=== PATIENT | female | born 1995 | race Caucasian/White ===

== ENCOUNTER → 2017-06-27 | Outpatient (CLI) | payer BC ==
--- NOTE | 2017-06-28 06:03 | PAP/PSG TECHNICIAN REPORT ---
[facility] Irrigator Head Polysomnogram Report Study name: None Report date: 06/28/2017 Study date: 06/27/2017 Referring Physician: MARCOS WASSERMAN PA-C Name: RISA WELLS Interpreting Physician: Dominik Ureña M.D. Date of : 1995 Irrigator Head: Dilia Keller [facility]. Sex: Female Age: 22 Study Type: PSG Weight: 174 lbs Height: 22 years, Height 5' 6" BMI: 28.08 Medications: NONE REPORTED Patient History 22 yr-old female here for a baseline study. She has a history of excessive daytime sleepiness, falling asleep at inappropriate times, and weakness in her arms and legs while laughing. Her Arbuck[place] scale is 17. The test was started on room air. ETCO2 testing was not utilized during this study. Room 3 Parameters Monitored NPSG: E1-M2, E2-M1, Fp1-M2, Fp2-M1, F3-M2, F4-M2, F4-M1, C3-M2, C4-M2, C4-M1, O1-M2, O2-M2, O2-M1, T3-M2, T4-M1, P3-M2, P4-M1, CHIN1, CHIN2, HR, EKG, Legs, PFLOW, SNOR, FLOW, CFLOW, Tidal Volume, THOR, ABDO, SpO2, PLTH, CPRESS, ETCO2 Wave, ETCO2, pH Sleep Architecture Sleep Stages Time at Lights Off 8:38:06 PM STAGES Time (min.) TST (%) Time at Lights On 5:30:36 AM Wake 47.5 -- Total Recording Time (TRT) 532.50 min. N1 33.5 7 Total Sleep Period (TSP) 513.0 min. N2 272.0 56 Total Sleep Time (TST) 485.0min. N3 55.0 11 Awake Time 47.5 min. REM 124.5 26 Wake after Sleep Onset 28.0 min. Sleep Efficiency (SE) 91 % Sleep Onset Latency (ABIGAIL) 19.5 min. Number of Stage 1 Shifts None Awakenings 16 Stage Changes 75 Number of REM periods 9 REM 124.5 26 REM Latency 79.5 min. NREM 360.5 74 Body Position Analysis Supine Right Left Side Prone Vertical Total Sleep Time (min.) 194.2 4.5 304.8 309.26 0.0 0.2 Total Sleep Time (%) 36% 1% 63% 64 0% N/A% Total Sleep Time REM (min.) 53.4 0.0 71.1 None 0.0 0.0 Total Sleep Time NREM (min.) 122.3 4.5 233.7 None 0.0 0.0 Intermittent Wake (min.) 18.4 7.5 21.4 None 0.0 0.2 Total Sleep Period (%) 36% None None None None None Arousals Myoclonus (PLM) * Events Count Index Events Count Index Spontaneous 49 6 Events Awake (PLMW) 46 58.1 Respiratory 0 0.0 Events Asleep w/ Arousal (PLMA) 13 1.6 PLM 13 2 Events Asleep w/o Arousal (PLMS) 57 7.1 Snoring 1 0 Total Asleep 70 8.7 Total 63 8 Total 116 13 Respiratory Analysis * CA OA MA CH H RERA Total Count 2 0 0 0 0 0 2 Index 0.2 0.0 0.0 0 0.0 0 0.2 Mean Duration 10.0 0.0 0.0 0.00 0.0 0.0 10.0 Longest Duration 10.1 0.0 0.0 0.00 0.0 0.0 10.1 Respiratory Event Summary Total Supine ~Supine Right Left Prone REM NREM Apneas Count 2 0 2 1 1 N/A 1 1 Index 0.2 0 0 13.3 0.2 N/A 0 0 Hypopneas (4% Desat) Count 0 0 0 0 0 N/A 0 0 Index 0.0 0.0 0 0.0 0.0 N/A 0.0 0.0 Apneas & All Hypopneas Count 2 0 2 1 1 N/A 1 1 Index 0.2 0 0 13 0 N/A 0.5 0.2 Respiratory Events (Poultry Scalder+All Hyp+RERA) Count 2 0 2 1 1 N/A 1 1 Index 0.2 0 0 13.3 0.2 N/A 0.5 0.2 Respiratory Related Arousal Count 0 0 0 0 0 N/A 0 0 Index 0.0 0 0 0 0 N/A 0 0 Snoring Analysis Supine Right Left Prone REM NREM Total Snore duration 1.1 min Snores count 5 0 13 N/A 5 13 18 Snore mean duration 3.6 Sec Snores index 2 0 3 N/A 2.4 2.2 2.2 TST with snoring (%) 0.2% Desaturation Event Summary: Minimum %SpO2 Event Count Mean/Min/Max Duration(sec.) Desaturation Index % Time In Bed > 90 8 22.0 / 6.0 / 55.0 0.9 99.6 86 - 90 0 N/A 0.0 0.0 81 - 85 0 N/A 0.0 0.1 76 - 80 0 N/A 0.0 0.1 71 - 75 0 N/A 0.0 0.0 66 - 70 0 N/A 0.0 0.0 61 - 65 1 16.0 / 16.0 / 16.0 576.0 0.0 56 - 60 0 N/A 0.0 0.0 51 - 55 0 N/A 0.0 0.0 < 50 0 N/A 0.0 0.0 Total REM NREM Awake <50% 0.0 min. 0.0 min. 0.0 min. 0.0 min. 51 - 60% 0.2 min. 0.0 min. 0.0 min. 0.2 min. 61 - 70% 0.1 min. 0.0 min. 0.0 min. 0.1 min. 71 - 80% 0.9 min. 0.0 min. 0.0 min. 0.9 min. 81 - 90% 1.0 min. 0.0 min. 0.0 min. 1.0 min. 91 - 100% 523.9 min. 124.5 min. 360.4 min. 39.1 min. Average 96 96 96 96 Minimum SpO2 60 94 92 60 Desaturation Event Index 1.0 0.0 0.2 10.1 # Desat. Events below 89% 2 N/A N/A 2 Time(%) with Saturation below 89% 0.4 0.0 0.0 0.4 Time(min.) with Saturation below 89% 2.2 0.0 0.0 2.2 Time (mins) REM (mins) NREM (mins) % of TST SpO2 Below 90% N/A N/A NN/A 0.0 SpO2 Below 88% 0 0 0 0 Heart Rate Analysis Min (bpm) Max (bpm) Average (bpm) Awake 54 225 75 NREM 51 97 69 REM 52 106 72 Overall 51 106 70 Supplemental O2 Values Minimum O2 level: None Value Start Time End Time Irrigator Head Comments Ms. Wells slept in the right, left, and supine positions. No cardiac arrhythmias or PLMs noted. No bruxism noted. No snoring was noted. She did not wake up to use the restroom during the night. Ms. Wells stated that she slept about the same as usual. The final report will be interpreted and signed by a sleep physician. The completed physician report will then be placed in the patient medical record. Therapy (cm H2O) 0 TIB (min.) 532.5 TST (min.) 485.0 Sleep Onset (min.) 19.5 REM Onset From Sleep (min.) 79.5 Sleep Efficiency % 91 Wakefulness (%) 9 Wakefulness (min.) 47.5 NREM 1 (%) 7 NREM 1 (min.) 33.5 NREM 2 (%) 56 NREM 2 (min.) 272.0 NREM 3 (%) 11 NREM 3 (min.) 55.0 REM (%) 26 REM (min.) 124.5 # Arousals 63 Arousal Index 8 # Snore 18 Snore Index 2.2 AHI 0.2 AHI Supine 0 AHI Non-Supine 0 NREM AHI 0.2 REM AHI 0.5 RDI 0.2 # Obstructive Apnea 0 # Central Apnea 2 # Mixed Apnea 0 # Hypopneas 0 RERAs 0 Total Respiratory Events 2 Time Below SpO2 89% (min.) 0.0 Mean NREM SpO2 (%) 96 Mean REM SpO2 (%) 96 Mean Sleep SpO2 (%) 96 Min NREM SpO2 (%) 92 Min REM SpO2 (%) 94 Position Supine (min.) 194.2 Position Non-supine (min.) 309.3 LM Index Sleep 8.7 LM Index NREM 9.0 LM Index REM 7.7 Mean Heart Rate (bpm) 70 Min Heart Rate (bpm) 51
[2017-06-28 11:40] LABS: BENZODIAZEPINE, URINE NEG (NEG); COCAINE,URINE NEG (NEG); PHENCYCLIDINE, URINE NEG (NEG)
--- NOTE | 2017-06-28 16:29 | POLYSOMNOGRAPH REPORT ---
[facility] MSLT REPORT Study Date: 06/28/2017 Report Date: 06/28/2017 Name: RISA FERNANDEZ Subject Code: Medicare: [facility] #: [id number] Sex: Female Referring Physician: TATO BARLOW M.D. Age: 22 Interpreting Physician: Evan Cho D.O. Weight: 174 lbs Public Safety Telecommunicator: Meghan Tolliver RPSGT. : 1995 Study Indications: BMI: 28.08 Medications: NONE Height: 5' 6" Medicare Date: Patient History Patient has a history of excessive daytime sleepiness, falling asleep at inappropriate times, and weakness in her arms and legs while laughing. Patient did have a combination Poly/MSLT in 2015 that was inconclusive with one nap containing REM. Patient had a sleep study done last night and is here today for an MSLT. Nap 1 Nap 2 Nap 3 Nap 4 Nap 5 Mean Values Start Time: 7:33:01 AM 9:31:31 AM 11:32:01 AM 1:31:01 PM 3:34:01 PM - End Time: 7:56:31 AM 9:51:31 AM 11:52:01 AM 1:59:31 PM 4:07:01 PM - Time in Bed (min): 23.50 20.00 20.00 28.50 33.00 25.00 Total Sleep Time (min): 15.00 0.00 0.00 12.50 1.50 5.80 Sleep Latency* (min): 8.50 NONE NONE 13.50 18.00 16.00 REM Latency (min): NONE NONE NONE NONE NONE 20.00 *Note: This report will display a default sleep latency of 20 minutes if the patient fails to sleep during a nap. Recording Public Safety Telecommunicator Comments: Sleep was obtained during 3 of the 5 naps. During nap 5, only 1.5 minutes of sleep were obtained and not all at one time. Patient did not seem to struggle to stay awake between naps, she was on her laptop computer doing school work all day. No REM was obtained. Just prior to 5th nap at 3:30pm, patient started pacing and acting "strangely", when asked if she was ok, she stated that she just needed to sleep. She was teary eyed with no expression and holding her right arm against her body in a very rigid position. When I handed her the pre-nap questionnaire, she took the pen with her left hand but then just handed it back and told me what to [place], I believe patient is right-handed. During nap 5, she laid on her back and during all the other naps she was always curled up on one of her sides. I asked patient if this is what happens to her and she stated yes, when I need sleep. She stated that when she really needs sleep she will just shake. The recording appeared normal during this nap, no EEG change. After the nap, she appeared fine, her leg was not shaking and her right arm was normal. I asked her how often this occurs and she stated that it depends, it happens whenever she doesn't force herself to get enough sleep. At the present time it is occurring about once every other week, but it can sometimes occur every other day. She said she needs about 14 hours of sleep to feel good. She got 8 hours of sleep last night during sleep test and she stated that that was not a good night sleep. She usually sleeps like a rock, but needs 14 hours of sleep. She stated that she had been treated for insomnia when she was in high school, but it did not help.
--- NOTE | 2017-07-05 08:41 | Sleep Study ---
Sleep Study Report Date of Service: 06/27/2017 Sleep Study Report Clinical data: The patient is a 22-year-old female with a chief complaint of excessive daytime somnolence. She has an [place] sleepiness score of 17 out of a possible 24. She has a history of falling asleep at inappropriate times. 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 Sometimes her knees feel weak with laughing. A diagnostic sleep study was done on 11/01/2015 and was negative for sleep apnea. She underwent a repeat nocturnal polysomnogram followed by multiple sleep latency testing on 06/01/2016. The overnight sleep study was negative. The multiple sleep latency testing showed a mean sleep latency of 11.2 minutes which would be only mildly abnormal. She had 1 nap out of 5 with REM sleep. A definitive diagnosis of narcolepsy could not be made. The patient is referred back for a repeat nocturnal polysomnogram to be followed by multiple sleep latency testing. Sleep architecture: During the overnight sleep study the patient had a total sleep period of 513 minutes. The total sleep time was 485 minutes. The sleep efficiency was normal at 91 percent. Sleep latency was 19.5 minutes which would be top normal. Wake after sleep onset was 28 minutes. The REM latency was normal at 79.5 minutes. Sleep consisted of stage N1 7 percent, stage N2 56 percent, stage N3 11 percent, stage REM 26 percent. Arousal data: Patient had a total of 63 arousals including 49 spontaneous arousals, 13 PLM arousals, and 1 snoring arousal. The arousal index was 8. PLM data: Patient had a total of 70 periodic limb movements for a PLM index of 8.7. There were 13 arousals associated with limb movements for a PLM arousal index of 1.6. EKG: The underlying cardiac rhythm was normal sinus. The cardiac rates 51-106 beats per minute with an average of 70 beats per minute. Respiratory data: The patient had a total of 2 respiratory events during the nighttime, both of which were central apneas. The longest apnea was 10.1 seconds. The apnea- hypopnea index was 0.2. This would reflect no significant sleep apnea. Oximetry data: The average saturation for the night was 96 percent. Except for technical issues related to motion artifact she had no saturations less than 89 percent. Drop Forger Helper comments for the overnight sleep study: The patient slept on the right, left, and supine positions. No cardiac arrhythmias or PLMS noted. No bruxism noted. No snoring was noted. She did not awaken to use the restroom during the night. MSLT: Following the overnight sleep study the patient underwent multiple sleep latency testing. This is a series of 5 naps designed to evaluate for the degree of daytime somnolence and to help exclude narcolepsy. The naps were administered at 2 hour intervals starting at 7:30 a.m.. The patient had 8 hours of sleep time which was well consolidated overnight prior to initiating the multiple sleep latency test. The patient fell asleep in only 3/5 naps, nap 1., nap 4., and nap 5. The mean sleep latency for the 5 naps was 16 minutes. This would be considered normal and would not suggest excessive daytime somnolence. There was no REM sleep in any of the naps. A diagnosis of narcolepsy cannot be made from this study. Recording photo optics technician comments: The patient did not seem to struggle to stay awake between naps. She was on her laptop computer doing school work all day. No REM was obtain. Just prior to the 5th nap at 3:30 p.m., the patient started pacing and acting "strangely". When asked if she was okay, she stated she just needed to sleep. She was teary-eyed with no expression and holding her right arm against her body in a very rigid position. When I handed her the pre nap questionnaire she took the Pen with her left hand but then just handed back and told me what to [place]. I believe the patient is right-handed. During nap 5 she laid on her back and during all the other naps she was always curled up on 1 of her sides. I asked the patient if this is what happens to her and she stated "yes when I need sleep ". The recording appeared normal during this nap, no EEG change. After the nap she appeared fine, her leg was not shaking and her right arm was normal. Impressions: 1. Excessive daytime somnolence by history-cannot be confirmed by multiple sleep latency testing with no definite evidence of obstructive sleep apnea, narcolepsy, or idiopathic hypersomnia. Comments: The patient has now had 2 complete studies including overnight polysomnogram study and multiple sleep latency testing. She has had well consolidated sleep on the overnight studies with no sleep apnea. The initial multiple sleep latency testing was mildly abnormal with a slightly decreased mean sleep latency and with 1 nap showing REM sleep. This most recent multiple sleep latency testing shows a normal sleep latency and no REM sleep at all. Although she gives a history which could suggest cataplexy, the findings on the multiple sleep latency testing cannot support a diagnosis of narcolepsy. Cannot exclude other causes for her symptoms. The imaging technician recorded some abnormal behavior just prior to her 5th nap as noted above. Advise clinical correlation. Recommendations: 1. The patient should follow up with her neurologist and with her primary care physician for further evaluation as indicated. Copies To 1: Evan Cho DO; Niyah Flores; Halle Canchola D.O.; Tatianna Landis M.D.
== END | disposition home or self-care (01) ==
LOC: C.NEUR 20:00
PROVIDERS: ATTEND Physician Assistant
DX: G47.19 Other hypersomnia (principal); G47.411 Narcolepsy with cataplexy; G43.109 Migraine with aura, not intractable, without status migrainosus